=== PATIENT | female | born 1960 | race African-American/Black ===

== ENCOUNTER → 2017-08-26 | Emergency (ER) | payer MEDICARE, OTHER ==
[~2017-08-26] VITALS: Ht 172.7 cm; Wt 112.0 kg
[~2017-08-26] MED LIST: AMBIEN5 MG PO; ATORVASTATIN CA40 MG PO; HYDROCODON-ACE1 EACH PO; LISINOPRIL5 MG PO; MELATONIN5 MG PO; METOPROLOL SUCC50 MG PO; NIFEDICAL XL30 MG PO; PLAVIX75 MG PO; PROTONIX40 MG PO; SERTRALINE HCL50 MG PO
--- OUTSIDE RECORDS SUMMARY | 2017-08-26 15:29 | XMS REPORT ---
Author Author [facility] Address Unknown Phone Unavailable Care Team Providers Care Elastic Yarn Twister Helper Name Role Phone TIM PURVIS Unavailable Unavailable Problems This patient has no known problems. Allergies, Adverse Reactions, Alerts This patient has no known allergies or adverse reactions. Medications This patient has no known medications. Results Test Description Test Time Test Comments Text Results Atomic Results Result Comments MRI RIGHT KNEE WO [place] [address] Patient Name: BRIANNE TRONCOSO MR #: [id number] : 1960 Age/Sex: 57/F Req #: [id number] Adm Physician: Ordered by: TIM PURVIS MD Report #: [id number] Location: MRI Room/Bed: Procedure: [id number] MRI/MRI RIGHT KNEE WO Exam Date: 04/27/17 Exam Time : 1720 REPORT STATUS: Signed Right knee MRI without contrast. History: Knee pain. Decreased range of motion. Pain not responding to conservative management. Comparison: None. Technique: Multiplanar multi-sequence MRI of the knee without contrast. Findings: Medial compartment: There is midsubstance degeneration and free edge fraying of the medial meniscus. No meniscal tear is seen. The medial compartmental articular cartilage surfaces are thin with regions of fraying and deep fissuring. There is mild underlying bone marrow edema. There are peripheral marginal osteophytes. The medial collateral ligament complex is intact. Lateral compartment: There is mid substance degeneration and free edge fraying of the lateral meniscus. No meniscal tear is seen. The lateral compartmental articular cartilage surfaces are thin with regions of fraying and fissuring. There are peripheral marginal osteophytes. In lateral collateral ligament complex is intact. Metallic artifact is seen in the lateral facial soft tissues obscuring fine detail of the region. Intercondylar notch: The ACL and PCL are intact. Patellofemoral compartment: There are regions of full-thickness articular cartilage loss in the patellofemoral compartment with underlying bone marrow edema. Extensor mechanism: The quadriceps and patellar tendons are normal. Other findings: There is a joint effusion and synovitis. There is no acute fracture, subluxation or avascular necrosis. There is a lobulated septated ganglion/synovial cyst along the posterior distal femur. IMPRESSION: Degeneration of the lateral meniscus without tear. There is associated degenerative arthrosis in the lateral compartment of the knee. Regions of full-thickness articular cartilage loss in the patellofemoral compartment with underlying bone marrow edema. Mild degenerative arthrosis in the medial compartment of the knee. Joint effusion, synovitis and lobulated septated ganglion/synovial cyst along the posterior distal femur. Signed by: Dr. Jeremías Fairbanks M.D. on 8:10 AM Dictated By: JEREMÍAS FAIRBANKS MD, MD 9 Transcribed By: JENI on 04/28/17809 COPY TO: TIM PURVIS MD MRI KNEE LEFT [place] [address] Patient Name: BRIANNE TRONCOSO MR #: [id number] : 1960 Age/Sex: 57/F Req #: [id number] Adm Physician: Ordered by: TIM PURVIS MD Report #: [id number] Location: MRI Room/Bed: Procedure: [id number] MRI/MRI KNEE LEFT WO Exam Date: 04/27/17 Exam Time: 1720 REPORT STATUS: Signed Left knee MRI without contrast. History : Knee pain. Decreased range of motion. Pain not responding to conservative management. Comparison: None. Technique: Multiplanar multi-sequence MRI of the knee without contrast. Findings: Medial compartment: There is midsubstance degeneration and free edge fraying of the medial meniscus no meniscal tear is seen. The medial compartmental articular cartilage surfaces are thin with regions of fraying and deep fissuring. There is mild underlying bone marrow edema. There are peripheral marginal osteophytes. The medial collateral ligament complex is intact. Lateral compartment: There is mid substance degeneration and free edge fraying of the lateral meniscus. There is an obliquely oriented tear at the anterior horn. The lateral compartmental articular cartilage surfaces are thin with regions of fraying and fissuring. There are peripheral marginal osteophytes. In lateral collateral ligament complex is intact. Intercondylar notch: The ACL and PCL are intact. Patellofemoral compartment: There are regions of full-thickness articular cartilage loss in the patellofemoral compartment with underlying bone marrow edema.. Extensor mechanism: The quadriceps and patellar tendons are normal. Other findings: There is a joint effusion and synovitis. There is no acute fracture, subluxation or avascular necrosis. IMPRESSION: Degeneration of the lateral meniscus with obliquely oriented tear at the anterior horn. There is associated degenerative arthrosis in the lateral compartment of the knee. Regions of full-thickness articular cartilage loss in the patellofemoral compartment with underlying bone marrow edema. Mild degenerative arthrosis in the medial compartment of the knee. Joint effusion and synovitis. Signed by: Dr. Jeremías Fairbanks M.D. on 04/28/2017 8:05 AM Dictated By: JEREMÍAS FAIRBANKS MD, MD 4 Transcribed By: JENI on 04/28/17804 COPY TO: TMI PURVIS MD CT ABDOMEN/PELVIS [address] [place], [place] [address] Patient Name: BRIANNE TRONCOSO MR #: [id number] : 1960 [facility] 57[id number] Req #: [id number] [facility] Physician: Ordered by: JENELLE PURVIS MD Report #: [id number] Location: CT Room/Bed: Procedure: [id number] CT/CT ABDOMEN/PELVIS W Exam Date: 04/01/17 Exam Time : 1720 REPORT STATUS: Signed EXAM: CT Abdomen and Pelvis WITH contrast INDICATION: Abdominal pain. COMPARISON: None. TECHNIQUE: Abdomen and pelvis were scanned utilizing a multidetector helical scanner from the lung base to the pubic symphysis after administration of IV contrast. Coronal and sagittal reformations were obtained. Routine protocol was performed. Scan was performed when during portal venous phase. IV CONTRAST: 150 mL of Omnipaque 300 ORAL CONTRAST: Water RADIATION DOSE: Total DLP: 845 mGy*cm Estimated effective dose: (DLP x 0.015 x size factor) mSv COMPLICATIONS: None FINDINGS: LINES and TUBES: None. LOWER THORAX: Unremarkable HEPATOBILIARY: No focal hepatic lesions. No biliary ductal dilation. GALLBLADDER: Status post cholecystectomy. SPLEEN: No splenomegaly. PANCREAS: No focal masses or ductal dilatation. ADRENALS: No adrenal nodules KIDNEYS/URETERS: The right kidney is mildly small rotated. Kidneys enhance symmetrically. No hydronephrosis. No cystic or solid mass lesions. No stones. GI TRACT: No abnormal distention, wall thickening, or evidence of bowel obstruction. Appendix is unremarkable. Postoperative changes involving the distal ileum, with intact appearing anastomosis not well evaluated due to the lack of positive oral contrast. There is mild dilatation of the distal ileal loop proximal to the anastomosis as seen on coronal image 33. Scattered sigmoid diverticula without diverticulitis. PELVIC ORGANS/BLADDER: The uterus is surgically absent. LYMPH NODES: No lymphadenopathy. VESSELS: Unremarkable. PERITONEUM / RETROPERITONEUM: No free air or fluid. BONES: Mild degenerative changes of the lower thoracic spine. SOFT TISSUES : Well-defined subcutaneous oval complex lesion in the ventral supraumbilical region, measuring 5.7 x 4.0 x 7.1 cm in sagittal, AP and transverse dimensions may represent a postoperative evolving hematoma or seroma. Small fat-containing umbilical hernia. IMPRESSION: 1. 7.1 cm supra umbilical ventral subcutaneous postoperative seroma versus evolving hematoma. 2. Small fat-containing umbilical hernia. 3. Mild sigmoid diverticulosis without diverticulitis. 4. Postoperative change involving involving the distal ileum without evidence of acute abnormality. No evidence of obstruction. Signed by: Dr. Ernst Mahajan M.D. on 04/01/2017 6:47 PM Dictated By: GORDON MAHAJAN MD, MD 46 Transcribed By: JENI on 04/01/171846 COPY TO: JENELLE PURVIS MD KNEE THREE VIEWS BILATERAL [place] [address] Patient Name: BRIANNE TRONCOSO MR #: [id number] : 1960 Age/Sex: 57/F Req #: [id number] Adm Physician: Ordered by: TIM PURVIS MD Report #: [id number] Location: [place] Room/Bed: Procedure: [id number] DX/KNEE THREE VIEWS BILATERAL Exam Date: 04/01/17 Exam Time: 1600 REPORT STATUS: Signed CORRECTION Corrected on: 04/01/2017; Dictated by: Ernst Mahajan M.D. on 2016 at 17:28 Electronically approved by: Ernst Mahajan M.D. on 04/01/2017 at 17:28 PROCEDURE: KNEE THREE VIEWS BILATERAL COMPARISON: Patients [facility], , KNEE RIGHT THREE VIEWS, 08/19/2012, 11:20. INDICATIONS: KNEE PAIN FINDINGS: There are no fractures, dislocations, lytic or blastic lesions. Interval worsening of right knee degenerative changes predominantly involving the patellofemoral and medial compartments consisting of joint space narrowing, subchondral sclerosis and marginal osteophytosis. Small suprapatellar joint effusion. There also moderate degenerative changes of the medial and patellofemoral compartments of the left knee. Linear metallic foreign body again observed lateral aspect of the right knee at the level of the proximal fibula. Bilateral small suprapatellar joint effusion, right larger than left. CONCLUSION: Moderate degenerative changes of the patellofemoral and medial compartments bilaterally, with worsening on the right (comparison of the right knee only available). Ernst Mahajan M.D. Dictated by: Ernst Mahajan M.D. on 04/01/2017 at 17: 25 Electronically approved by: Ernst Mahajan M.D. on 04/01/2017 at 17:25 Dictated By: GORDON MAHAJAN MD, MD 27 Transcribed By: ROSA on 04/01 COPY TO: TIM PURVIS MD
== END | disposition left against medical advice (07) ==
LOC: FSED 15:26
DX: M25.512 Pain in left shoulder (principal)

== ENCOUNTER → 2017-08-27 | Outpatient (CLI) | payer MEDICARE, OTHER ==
--- NOTE | 2017-08-27 18:52 | Diagnostic Imaging Report ---
PROCEDURE:KNEE THREE VIEWS BILATERAL COMPARISON:None. INDICATIONS:FALL, BILATERAL KNEE PAIN FINDINGS: Normal mineralization. No acute, displaced fracture or dislocation. No significant interval change in moderate tricompartmental degenerative joint disease in both knees with joint space narrowing, subchondral sclerosis and marginal osteophytes, right greater than left.. Bilateral small suprapatellar effusions, right greater than left. The left suprapatellar effusion is increased in size when compared to prior exam Stable linear metallic foreign body in the lateral aspect of the right knee at the level of the proximal fibula. CONCLUSION: No acute, displaced fracture or dislocation. Stable tricompartmental degenerative joint disease in both knees, right greater than left. Stable small right suprapatellar effusion. Slight interval increase in size of small left suprapatellar effusion. Dewayne Galloway M.D. Dictated by: Dewayne Galloway M.D. on 08/27/2017 at 18:51 Electronically approved by: Dewayne Galloway M.D. on 08/27/2017 at 18:51
--- NOTE | 2017-08-27 18:54 | Diagnostic Imaging Report ---
PROCEDURE:X-RAY LEFT SHOULDER, COMPLETE COMPARISON:DX, CHEST SINGLE (PORTABLE), 08/14/2012, 12:18. INDICATIONS:FALL, LEFT SHOULDER PAIN FINDINGS: Normal mineralization. No acute, displaced fracture or dislocation. No lytic or blastic lesion. No a.c. separation. Glenohumeral joint is grossly unremarkable. Mild degenerative changes in the acromio clavicular joint. Visualized portions of the left lung are clear except for a stable 4 mm calcified granuloma. CONCLUSION: No acute abnormalities. Dewayne Galloway M.D. Dictated by: Dewayne Galloway M.D. on 08/27/2017 at 18:54 Electronically approved by: Dewayne Galloway M.D. on 08/27/2017 at 18:54
== END ==
LOC: RAD 17:12
DX: M25.562 Pain in left knee (principal); M25.561 Pain in right knee; M25.512 Pain in left shoulder

== ENCOUNTER 2019-06-20 08:23 | Observation (INO) | payer BC, MEDICARE ==
[2019-06-16 12:49] LABS: BASOPHILS % 0.6 % (0.0-1.0); EOSINOPHILS # (AUTO) 0.2 (0.0-0.4); EOSINOPHILS % 3.2 % (0.0-6.0); HEMATOCRIT 40.4 % (34.2-44.1); HEMOGLOBIN 12.9 g/dL (12.0-16.0); LYMPHOCYTES # (AUTO) 1.8 (1.0-3.2); LYMPHOCYTES % 27.8 % (18.0-39.1); MEAN CORPUSCULAR HEMOGLOBIN 30.7 pg (28-32); MEAN CORPUSCULAR HGB CONC 31.9 g/dL (31-35); MEAN CORPUSCULAR VOLUME 96.2 fL (81-99); MONOCYTES # (AUTO) 0.6 (0.2-0.8); MONOCYTES % 9.3 % (4.4-11.3); NEUTROPHILS # (AUTO) 3.7 (2.1-6.9); NEUTROPHILS % 58.8 % (38.7-80.0); PLATELET COUNT 298 x10e3/uL (140-360); RED CELL DISTRIBUTION WIDTH 12.6 % (11.7-14.4)
--- NOTE | 2019-06-16 13:55 | Diagnostic Imaging Report ---
Chest, PA and lateral. History: Preoperative evaluation for knee surgery. Comparison: None available. Discussion: The cardiomediastinal silhouette and pulmonary vasculature are within normal limits. The lungs are clear without evidence of consolidation or effusion. There are no acute osseous abnormalities. IMPRESSION: No graphic evidence of acute cardiopulmonary abnormality. Signed by: Star Farmer MD on 06/16/2019 1:52 PM
[~2019-06-20] VITALS: Ht 172.7 cm; Wt 109.3 kg
[~2019-06-20 08:23] MED LIST changes: +BIOTIN2500 MCG PO; +CRESTOR10 MG PO; +CYCLOBENZAPRINE10 MG PO; +GINGER ROOT550 MG PO; +HYDROXYCHLOROQ200 MG PO; +OLIVE LEAF EXT250 MG PO; +ROPIVACAINE 246.25 MG, EPINEPHRINE HCL 1:1000 1ML 0.5 MG, CLONIDINE HCL 0.08 MG, KETORO... INJ ONE; +WOMEN'S DAILY1 EACH PO; +[UNRECOGNIZED DRUG - OTHER] PO
--- OUTSIDE RECORDS SUMMARY | 2019-06-20 08:26 | XMS REPORT ---
Author Author [facility] Address Unknown Phone Unavailable Care Team Providers Care Psychology Lecturer Name Role Phone ROSIO INFANTE Unavailable Unavailable TIM PURVIS Unavailable Unavailable Payers Payer Name Policy Type Policy Number Effective Date Expiration Date Problems This patient has no known problems. Allergies, Adverse Reactions, Alerts Allergy Name Allergy Type Status Severity Reaction(s) Onset Date Inactive Date Treating Clinician Comments morphine DA Active U 2018-06-29 00:00:00 morphine DA Active U 2018-06-28 00:00:00 morphine DA Active U 2018-01-01 00:00:00 Medications This patient has no known medications. Results Test Description Test Time Test Comments Text Results Atomic Results Result Comments CHEST 2 VIEWS 2019-06-16 13:51:00 [place] [address] Patient Name: BRIANNE TRONCOSO MR #: [id number] : 1960 Age/Sex: 59/F Req #: [id number] Adm Physician: Ordered by: ROSIO INFANTE MD Report #: [id number] Location: OR Room/Bed: Procedure: [id number] DX/CHEST 2 VIEWS Exam Date: Exam Time: REPORT STATUS: Signed Chest, PA and lateral. History: Preoperative evaluation for knee surgery. Comparison: None available. Discussion: The cardiomediastinal silhouette and pulmonary vasculature are within normal limits. The lungs are clear without evidence of consolidation or effusion. There are no acute osseous abnormalities. IMPRESSION: No graphic evidence of acute cardiopulmonary abnormality. Signed by: Star Acevedo MD on 06/16/2019 1:52 PM Dictated By: STAR ACEVEDO MD 135 Transcribed By: JENI on 06/16/19 135 COPY TO: ROSIO INFANTE MD KNEE THREE VIEWS BILATERAL [place] [address] Patient Name: BRIANNE TRONCOSO MR #: [id number] : 1960 Age/Sex: 57/F Req #: [id number] Adm Physician: Ordered by: TIM PURVIS MD Report #: [id number] Location: [facility] Room/Bed: Procedure: [id number] DX/KNEE THREE VIEWS BILATERAL Exam Date: 08/27/17 Exam Time: 1730 REPORT STATUS: Signed PROCEDURE: KNEE THREE VIEWS BILATERAL COMPARISON: None. INDICATIONS: FALL, BILATERAL KNEE PAIN FINDINGS: Normal mineralization. No acute, displaced fracture or dislocation. No significant interval change in moderate tricompartmental degenerative joint disease in both knees with joint space narrowing, subchondral sclerosis and marginal osteophytes, right greater than left.. Bilateral small suprapatellar effusions, right greater than left. The left suprapatellar effusion is increased in size when compared to prior exam Stable linear metallic foreign body in the lateral aspect of the right knee at the level of the proximal fibula. CONCLUSION: No acute, displaced fracture or dislocation. Stable tricompartmental degenerative joint disease in both knees, right greater than left. Stable small right suprapatellar effusion. Slight interval increase in size of small left suprapatellar effusion. Opal Galloway M.D. Dictated by: Opal Galloway M.D. on 08/27/2017 at 18:51 Electronically approved by: Opal Galloway M.D. on 08/27/2017 at 18:51 Dictated By: OPAL GALLOWAY MD 50 Transcribed By: ROSA on 08/27/171850 COPY TO: TIM PURVIS MD SHOULDER LEFT COMPLETE [place] [address] Patient Name: BRIANNE TRONCOSO MR #: [id number] : 1960 Age/Sex: 57/F Req #: [id number] Adm Physician: Ordered by: TIM PURVIS MD Report #: [id number] Location: [facility] Room/Bed: Procedure: [id number] DX/SHOULDER LEFT COMPLETE Exam Date: 08/27/17 Exam Time: 1730 REPORT STATUS: Signed PROCEDURE: X-RAY LEFT SHOULDER, COMPLETE COMPARISON: DX, CHEST SINGLE (PORTABLE), 08/14/2012, 12:18. INDICATIONS: FALL, LEFT SHOULDER PAIN FINDINGS: Normal mineralization. No acute, displaced fracture or dislocation. No lytic or blastic lesion. No a.c. separation. Glenohumeral joint is grossly unremarkable. Mild degenerative changes in the acromio clavicular joint. Visualized portions of the left lung are clear except for a stable 4 mm calcified granuloma. CONCLUSION: No acute abnormalities. Opal Galloway M.D. Dictated by: Opal Galloway M.D. on 08/27/2017 at 18:54 Electronically approved by: Opal Galloway M.D. on 08/27/2017 at 18:54 Dictated By: OPAL GALLOWAY MD 53 T ranscribed By: ROSA on 08/27/171853 COPY TO: TIM PURVIS MD MRI RIGHT KNEE WO [place] [address] Patient Name: BRIANNE TRONCOSO MR #: [id number] : 1960 Age/Sex: 57/F Req #: [id number] [facility] Physician: Ordered by: TIM PURVIS MD Report #: [id number] Location: MRI Room/Bed: Procedure: [id number] MRI/MRI RIGHT KNEE WO Exam Date: 04/27/17 Exam Time: 1720 REPORT STATUS: Signed Right knee MRI [...] by: Dr. Jeremías Fairbanks M.D. on 04/28/2017 8:10 AM Dictated By: JEREMÍAS FAIRBANKS MD, MD 9 Transcribed By: JENI on 04/28/17809 COPY TO: TIM PURVIS MD MRI KNEE LEFT WO [place] [address] Patient Name: BRIANNE TRONCOSO MR #: [id number] : 1960 Age/Sex: 57/F Req #: [id number] Adm Physician: Ordered by: TIM PURVIS MD Report #: [id number] Location: MRI Room/Bed: Procedure: [id number] MRI/MRI KNEE LEFT WO Exam Date: 04/27/17 Exam Time: 1720 REPORT STATUS: Signed Left knee MRI without contrast. History: Knee pain. [...] Transcribed By: JENI on 04/28/17804 COPY TO: TIM PURVIS MD CT ABDOMEN/PELVIS W [address] [place], [place], [place] [address] Patient Name: BRIANNE TRONCOSO MR #: [id number] : 1960 Age/Sex: 57/F Req #: [id number] Adm Physician: Ordered by: JENELLE PURVIS MD Report #: [id number] Location: CT Room/Bed: Procedure: [id number] CT/CT ABDOMEN/PELVIS W Exam Date: 04/01/17 Exam Time: 1720 REPORT STATUS: Signed EXAM: CT Abdomen [...] changes of the lower thoracic spine. SOFT TISSUES: Well-defined subcutaneous oval complex lesion in the [...] JENELLE PURVIS MD KNEE THREE VIEWS BILATERAL [place] [address] Patient Name: BRIANNE TRONCOSO MR #: [id number] : 1960 Age/Sex: 57/F Req #: [id number] Adm Physician: Ordered by: TIM PURVIS MD Report #: [id number] Location: [place] Room/Bed: Procedure: [id number] DX/KNEE THREE VIEWS BILATERAL Exam Date: 04/01/17 Exam Time: 1600 REPORT STATUS: Signed CORRECTION Corrected on: 04/01/2017; Dictated by: Ernst Mahajan M.D. on 04/01/2017 at 17:28 Electronically approved by: Ernst Mahajan M.D. on 04/01/2017 at 17:28 PROCEDURE: KNEE THREE VIEWS BILATERAL COMPARISON: Patients [facility], DX, KNEE RIGHT THREE VIEWS, 08/19/2012, 11:20. INDICATIONS: [...] Ernst Mahajan M.D. on 04/01/2017 at 17:25 Electronically approved by: Ernst Mahajan M.D. on 04/01/2017 at 17:25 Dictated By: GORDON MAHAJAN MD, MD 27 Transcribed By: ROSA on 04/01/171727 COPY TO: TIM PURVIS MD
[2019-06-20] MEDS ORDERED: DEXAMETHASONE SOD PHOS 10 MG/1 ML VIAL ONE (08:54)
[2019-06-20] MEDS ORDERED: CELECOXIB 200 MG CAP ONE (08:54)
[2019-06-20] MEDS ORDERED: CEFAZOLIN SOD 1 GM/NS 50ML 100 ML IV ONE (08:54)
[2019-06-20] MEDS ORDERED: GABAPENTIN 300 MG CAP ONE (08:54)
[2019-06-20] MEDS ORDERED: SODIUM CHLORIDE 0.9% 500ML 500 ML ONE (09:45)
[2019-06-20] MEDS ORDERED: VANCOMYCIN HCL 1,000 MG ONE (09:45)
[2019-06-20] MEDS ORDERED: TRANEXAMIC ACID 1,000 MG/10 ML ML ONE (09:46)
[2019-06-20] MEDS ORDERED: BACITRACIN 50,000 UNIT VIAL ONE (09:46)
[2019-06-20] MEDS ORDERED: ACETAMINOPHEN 1000 MG/100 ML 100 ML IV ONE (10:16)
[2019-06-20] MEDS ORDERED: DOCUSATE SODIUM 100 MG CAP PO PRN (12:15)
[2019-06-20] MEDS ORDERED: DIPHENHYDRAMINE HCL INJ 50 MG/ML VIAL IM/IV PRN (12:15)
[2019-06-20] MEDS ORDERED: ZOLPIDEM TARTRATE 5 MG TAB PO PRN (12:15)
[2019-06-20] MEDS ORDERED: ONDANSETRON HCL INJ 2MG/ML 2ML 2 MG/ML VIAL IV PRN (12:15)
[2019-06-20] MEDS ORDERED: ACETAMINOPHEN 650 MG SUPP PR PRN (12:15)
[2019-06-20] MEDS ORDERED: HYDROCODONE/APAP 5MG-325MG TAB PO PRN (12:15)
[2019-06-20] MEDS ORDERED: PROMETHAZINE HCL (IM) 25 MG/ML VIAL INJ PRN (12:15)
[2019-06-20] MEDS ORDERED: FENTANYL CITRATE/PF 100MCG/2 ML INJ ONE ×2 (12:34→18:03)
--- NOTE | 2019-06-20 13:14 | Diagnostic Imaging Report ---
Right knee, 2 views Clinical indication: Postop right knee Comparison: No radiograph comparisons available for review Findings: Patient is status post cemented right total knee arthroplasty. Anatomic alignment. No periprosthetic fracture. Normal postoperative soft tissue changes. Impression: Status post right total knee arthroplasty. Anatomic alignment. Signed by: Star Farmer MD on 06/20/2019 1:10 PM
--- NOTE | 2019-06-20 14:36 | Consultation ---
DATE OF CONSULTATION: REASON FOR CONSULTATION: Medical management. HISTORY OF PRESENT ILLNESS: A 59-year-old woman, who was admitted to [facility] with a diagnosis of advanced right knee degenerative joint disease. Today, the patient underwent successful right total knee replacement and was performed by her orthopedic surgeon, namely Dr. Neel Patton. The patient states she does have a slight cough because she was exposed to the element outdoors while attending a this last weekend. REVIEW OF SYSTEMS: GENERAL: Weight is stable. No fever or chills. HEENT: No headaches. No visual changes. CARDIOVASCULAR/RESPIRATORY: Slight cough, nonproductive. No chest pain or tightness. GI: No nausea, vomiting, or diarrhea. She does have slight abdominal discomfort. : Garcia catheter removed. NEUROMUSCULAR: No limb weakness or numbness. PAST MEDICAL HISTORY: 1. Obesity, BMI 36. 2. Hypertension. 3. Hyperlipidemia. 4. Coronary artery disease (coronary stent placement in 2009). 5. Depression. ALLERGIES: MORPHINE. FAMILY HISTORY: Noncontributory. SOCIAL HISTORY: This woman is , lives with her . She is semi- retired. The patient states she does not smoke tobacco. She drinks alcohol rarely. MEDICATIONS: 1. Biotin 5000 mcg once daily. 2. Cyclobenzaprine 10 mg once daily as needed for back spasms. 3. Kyra root 550 mg one capsule daily. 4. Plaquenil 200 mg daily. 5. Lisinopril 2.5 mg daily. 6. Metoprolol succinate 50 mg daily. 7. Multivitamin once daily. 8. [place] extract 250 mg daily. 9. Rosuvastatin 10 mg at bedtime. 10. Sertraline 100 mg daily. PAST SURGICAL HISTORY: 1. Coronary stent placed in 2009. 2. Hysterectomy. 3. Small bowel resection in 2010. 4. Laparoscopic cholecystectomy. 5. Ureter stent placement and removal. PHYSICAL EXAMINATION: GENERAL: She is awake, alert, and fluent. She is pleasant and cooperative on exam. VITAL SIGNS: Height 5 feet 8 inches, weight 240 pounds, BMI 36. Blood pressure is 118/72, pulse 68, respiratory rate 16, oxygen saturation 98% on 2 L oxygen. INTEGUMENT: Skin is warm dry. No pallor, jaundice, or diaphoresis. HEENT: Anicteric sclerae. Moist mucous membranes. NECK: Supple. No evidence of jugular venous distention. CARDIOVASCULAR: Distant heart sounds. Regular rate and rhythm. LUNGS: The patient has coarse bronchial breath sounds bilaterally. No wheezing. She has moderate air entry bilaterally. ABDOMEN: Obese, it is benign. She does have bowel sounds. The laparoscopic incisions are clean, dry, and intact. EXTREMITIES: No edema on legs. She is wearing sequential compression devices. NEUROLOGIC: Intact. DIAGNOSES: 1. Status post right total knee replacement. 2. Hypertensive heart disease. 3. Obesity, BMI 36. 4. Coronary artery disease (coronary artery stent placed in 2009). PLAN: 1. Encourage incentive spirometer use to prevent atelectasis. 2. Mobilize the patient. 3. Order chest x-ray since she has coarse bronchial breath sounds with poor air entry bilaterally. 4. Follow hemoglobin and hematocrit as well as renal function. 5. Resume home medications. I would like to thank Dr. Patton for this generous consult. I spent 50 minutes in the care of this consultation. MD PRINCESS Jauregui/MINGO /[id number] MTDSandra
--- NOTE | 2019-06-20 14:59 | Diagnostic Imaging Report ---
Chest, portable AP view History: Bronchitis Comparison: 06/16/2019 IMPRESSION: The heart is within normal limits size. There is right midlung zone platelike atelectasis. No focal consolidation, pleural effusion, or pneumothorax. No acute osseous abnormality. Signed by: Star Farmer MD on 06/20/2019 2:55 PM
[2019-06-20] MEDS: SODIUM CHLORIDE 0.9% 1000ML 1,000 ML IV SCH ×2 (15:05→23:16)
[2019-06-20] MEDS: CEFAZOLIN SOD 1 GM/NS 50ML 50 ML IV SCH ×2 (15:05→22:30)
[2019-06-20 15:36] VITALS: BP_SYST 117; BP_SYST 118; BP_DIAS 71; BP_DIAS 80
[2019-06-20 15:46] VITALS: BP 117/71
[2019-06-20 15:47] VITALS: BP 117/71
[2019-06-20 16:00] VITALS: BP 110/81
[2019-06-20] MEDS: KETOROLAC TROMETHAMINE 30 MG/ML VIAL IV PRN ×2 (16:05→23:00)
[2019-06-20] MEDS: ASPIRIN 325 MG TAB PO SCH (17:00)
[2019-06-20] MEDS ORDERED: CELECOXIB 100 MG CAP PO SCH (17:00)
[2019-06-20] MEDS ORDERED: SEVOFLURANE INHAL SOLN 250 ML PEN BTL ONE (17:46)
[2019-06-20] MEDS ORDERED: ONDANSETRON HCL INJ 2MG/ML 2ML 2 MG/ML VIAL ONE (17:46)
[2019-06-20] MEDS ORDERED: DEXAMETHASONE SOD PHOS INJ 4 MG/ML VIAL ONE (17:46)
[2019-06-20] MEDS ORDERED: ACETAMINOPHEN 1000 MG/100 ML IV ONE (17:46)
[2019-06-20] MEDS ORDERED: NEOSTIGMINE 1 MG/ML 10ML VIAL ONE (17:46)
[2019-06-20] MEDS ORDERED: PROPOFOL IV EMULSION 10 MG/ML 20 ML VIAL ONE (17:46)
[2019-06-20] MEDS ORDERED: ROCURONIUM BROMIDE 10 MG/ML 5ML VIAL ONE (17:46)
[2019-06-20] MEDS ORDERED: LIDOCAINE HCL 2% LOCAL INJ 5 ML SDV VIAL INJ ONE (17:46)
[2019-06-20] MEDS ORDERED: GLYCOPYRROLATE INJ 0.2 MG/ML VIAL ONE (17:46)
[2019-06-20] MEDS: ACETAMINOPHEN 1000 MG/100 ML 100 ML IV SCH ×2 (17:47→23:58)
[2019-06-20] MEDS: CELECOXIB 200 MG CAP PO SCH (17:47)
[2019-06-20] MEDS ORDERED: ROPIVACAINE 0.5% 5 MG/ML 30 ML SDV ONE (17:53)
[2019-06-20] MEDS ORDERED: LIDOCAINE 2%/ EPINEPHRINE 20ML MDV ONE (17:53)
[2019-06-20] MEDS ORDERED: ACETAMINOPHEN 1000 MG/100 ML IV SCH (18:00)
[2019-06-20] MEDS ORDERED: MIDAZOLAM HCL 2 MG/2 ML VIAL ONE (18:03)
[2019-06-20] MEDS: HYDROCODONE/APAP 7.5MG-325MG 1 EA TAB PO PRN ×2 (18:33→23:57)
[2019-06-20 19:35] VITALS: BP 110/90
[2019-06-20 20:00] VITALS: BP 110/90
--- NOTE | 2019-06-20 21:50 | NUR ---
Spoke with Dr Walker regarding patient requesting medication for cough. CXR results read. New order for Robitussin DM 10 cc po Q 6 hrs PRN cough
[2019-06-20] MEDS ORDERED: GUAIFENESIN/DEXTROMETHORPHAN LIQD 5 ML UDC NG PRN (22:00)
[2019-06-21] VITALS: BP 122/86
[2019-06-21 04:00] VITALS: BP 135/96
[2019-06-21] MEDS: HYDROCODONE/APAP 7.5MG-325MG 1 EA TAB PO PRN (05:20)
[2019-06-21] MEDS: ACETAMINOPHEN 1000 MG/100 ML 100 ML IV SCH ×2 (05:20→12:09)
[2019-06-21] MEDS: CEFAZOLIN SOD 1 GM/NS 50ML 50 ML IV SCH (06:01)
[2019-06-21 06:25] LABS: BASOPHILS % 0.1 % (0.0-1.0); EOSINOPHILS # (AUTO) 0.2 (0.0-0.4); EOSINOPHILS % 1.7 % (0.0-6.0); HEMATOCRIT 34.4 % (34.2-44.1); HEMOGLOBIN 10.7 g/dL (12.0-16.0); LYMPHOCYTES # (AUTO) 1.2 (1.0-3.2); MEAN CORPUSCULAR HEMOGLOBIN 30.7 pg (28-32); MEAN CORPUSCULAR HGB CONC 31.1 g/dL (31-35); MEAN CORPUSCULAR VOLUME 98.9 fL (81-99); MONOCYTES # (AUTO) 0.8 (0.2-0.8); MONOCYTES % 7.4 % (4.4-11.3); NEUTROPHILS # (AUTO) 8.4 (2.1-6.9); NEUTROPHILS % 79.4 % (38.7-80.0); PLATELET COUNT 271 x10e3/uL (140-360); RED BLOOD COUNT 3.48 x10e6/uL (3.6-5.1); RED CELL DISTRIBUTION WIDTH 12.5 % (11.7-14.4)
[2019-06-21 06:48] LABS: ALANINE AMINOTRANSFERASE 23 IU/L (0-55); ALBUMIN/GLOBULIN RATIO 0.9 (0.8-2.0); ALKALINE PHOSPHATASE 89 IU/L (40-150); ANION GAP 13.5 mmol/L (8-16); BLOOD UREA NITROGEN 15 mg/dL (7-26); BUN/CREATININE RATIO 20 (6-25); CALCIUM 8.6 mg/dL (8.4-10.2); CARBON DIOXIDE 24 mmol/L (22-29); CHLORIDE 104 mmol/L (98-107); CREATININE, SERUM 0.76 mg/dL (0.57-1.11); EST GLOMERULAR FILTRATION RATE > 60 ML/MIN (60-); GLUCOSE 123 mg/dL (74-118); POTASSIUM 4.5 mmol/L (3.5-5.1); SODIUM 137 mmol/L (136-145)
[2019-06-21 08:04] VITALS: BP 138/78
[2019-06-21] MEDS: SODIUM CHLORIDE 0.9% 1000ML 1,000 ML IV SCH (08:05)
[2019-06-21] MEDS: KETOROLAC TROMETHAMINE 30 MG/ML VIAL IV PRN (08:38)
[2019-06-21] MEDS: ASPIRIN 325 MG TAB PO SCH (08:41)
[2019-06-21] MEDS: CELECOXIB 200 MG CAP PO SCH (08:42)
[2019-06-21 08:44] VITALS: BP 138/78
--- NOTE | 2019-06-21 08:49 | NUR ---
NAT WRAP REMOVED, CPM REMOVED, MEDICATED PER MD ORDER FOR PAIN 01/19 R KNEE , PHYSICAL THERAPIST IN ROOM ASSISTING PT OOB
--- NOTE | 2019-06-21 09:52 | NUR ---
Order received for HH and DME. Spoke to patient, she states her 3:1 and CPM has been delivered to her house and her walker is here at bedside. Fartun with home care providers has spoken to her, she provided him with another phone number - [phone] - her house number. Spoke to Samantha at home care providers intake about having the order, she states yes, it does though and patient must be seen tomorrow. Informed her pt is to DC today. Also informed Fartun about the order expiring.
[2019-06-21 11:32] VITALS: BP 111/88
[2019-06-21] MEDS ORDERED: ACETAMINOPHEN 1000 MG/100 ML IV PRN (12:15)
--- NOTE | 2019-06-21 12:32 | Operative Report ---
DATE OF PROCEDURE: 06/20/2019 SURGEON: Neel Patton MD ANIMAL RESEARCHER: Mason Lewis, certified PA. PREOPERATIVE DIAGNOSIS: Osteoarthritis of right knee. POSTOPERATIVE DIAGNOSIS: Osteoarthritis of right knee. PROCEDURE: Right total knee arthroplasty. INDICATIONS: The patient is an active 59-year-old lady, who has end-stage arthritis of her right knee. She has failed conservative management and would like to proceed with a right knee replacement. The risks and benefits of the procedure have been discussed. The implants and recovery have been explained. She states she understands and wishes to proceed. PROCEDURE IN DETAIL: The patient was brought to the operating room and placed under general anesthetic. She received prophylactic antibiotics, a regional block and tranexamic acid in the holding area. Her right lower extremity was prepped and draped in a sterile manner. A preoperative time-out was performed. The extremity was exsanguinated and a proximal tourniquet was inflated to 300 mmHg. An anterior incision with a medial parapatellar arthrotomy was performed. Clear synovial fluid was removed from the joint. Soft tissue releases were performed to bring the knee up into flexion with the patella everted. Meniscal remnants, marginal osteophytes, and the cruciate ligaments were removed. There was a large cystic lesion in the posterior cruciate ligament. An extramedullary cutting guide was used to resect the proximal tibia. A Kristal Persona medial congruent knee system was used throughout the case. The tibial base plate was a size F. The central fin punch was drilled and impacted. Attention was directed towards the distal femur. An intramedullary cutting guide was used to resect the distal femur in 5 degrees of valgus and rotation referencing off a combination of landmarks including Whitesides line, the epicondylar axis and the posterior condyles. The femoral component was a size 11. The anterior and posterior cuts were made. A trial reduction was performed. A 10 mm medial congruent tibial insert provided appropriate soft tissue balancing in full extension and 90 degrees of flexion. The patella was carefully resurfaced with a 35 mm x 9 mm patellar button. The thickness was checked before and after, and was right around 23 mm. The lateral facet was very thin and we cheated the patellar insert to the medial aspect. The patellar tracking was noted to be concentric and no lateral retinacular release was necessary. The trial implants were then all removed. A 100 mL premixed pericapsular ANIL injection was placed into the surrounding soft tissue. The knee was thoroughly irrigated with a shower tip pulsatile lavage. All bone cuts had been irrigated with a spray mixture of diluted polymyxin and vancomycin spray. The components were cemented into place using a single mix of high viscosity Biomet cement preloaded with antibiotics. Care was taken to remove extravasated cement. The wound was further irrigated while the cement cured. The arthrotomy was carefully closed with interrupted #1 Ethibond. The knee was put through flexion and extension to ensure a secure closure. The skin was closed with subcuticular Vicryl and newton. A sterile Aquacel bandage was applied. The patient was extubated and transported to the recovery room in stable condition. Blood loss was minimal. All needle and sponge counts were correct. Neel Patton MD DR/MINGO /[id number]
[2019-06-21] MEDS ORDERED: NORCO 7.5-3251 EACH PO (13:05)
--- NOTE | 2019-06-21 14:04 | NUR ---
DISCHARGE INSTRUCTIONS REVIEWED WITH PT, VERBALIZED UNDERSTANDING,
--- NOTE | 2019-06-21 14:10 | NUR ---
Visit made by the Spiritual Care Department Pastoral Visitor, Hyun Richards. PV provided pastoral presence, prayer, hospitality, and supportive listening. Pastoral Visitor informed pt/family of the scope of [employer] and availability. KYLER DHILLON [employer] Spiritual Care Department O: [phone] Pager: [phone] ([phone] calling from)
== END 2019-06-21 14:19 | disposition home health service (06) ==
LOC: OR 08:23 → PACU V 12:07 → MED/SURG 13:18
PROVIDERS: ADMIT Specialist; ATTEND Specialist
DX: M17.11 Unilateral primary osteoarthritis, right knee (principal); K25.9 Gastric ulcer, unspecified as acute or chronic, without hemorrhage or perforation; K29.70 Gastritis, unspecified, without bleeding; Z88.5 Allergy status to narcotic agent; Z82.61 Family history of arthritis; Z80.9 Family history of malignant neoplasm, unspecified; Z83.3 Family history of diabetes mellitus; Z82.49 Family history of ischemic heart disease and other diseases of the circulatory system; Z82.3 Family history of stroke; N28.9 Disorder of kidney and ureter, unspecified; I11.0 Hypertensive heart disease with heart failure; I50.9 Heart failure, unspecified; K21.9 Gastro-esophageal reflux disease without esophagitis; K58.9 Irritable bowel syndrome, unspecified; I25.10 Atherosclerotic heart disease of native coronary artery without angina pectoris; Z95.5 Presence of coronary angioplasty implant and graft; E66.9 Obesity, unspecified; Z68.36 Body mass index [BMI] 36.0-36.9, adult; E78.5 Hyperlipidemia, unspecified; J40 Bronchitis, not specified as acute or chronic; M35.00 Sjogren syndrome, unspecified
CPT/HCPCS: 27447; 36415 ×2; 71045; 71046; 73560; 80053; 85025 ×2; 86850; 86900; 86920; 97116 ×2; 97139; 97161; 97530 ×2; C1713; G0378 ×2; J0131 ×2; J0171; J0690 ×2; J1100 ×2; J1885 ×2; J2001 ×2; J2250; J2405; J2704; J2710; J2795; J3010; J3370; J7030 ×2; J7040